=== PATIENT | female | born 2000 | race Caucasian/White ===

== ENCOUNTER 2023-11-08 09:53 | Outpatient (CLI) | payer OTHER ==
--- NOTE | 2023-11-09 08:02 | XRAY Report ---
PROCEDURE: Shoulder 2 View RT INDICATIONS: RIGHT SHOULDER PAIN TECHNIQUE: 3 views of the shoulder were acquired. COMPARISON: None. FINDINGS: Bones: No fractures or dislocations. No suspicious bony lesions. Visualized ribs appear intact. Soft tissues: No suspicious soft tissue calcifications. The visualized lungs are within normal limi ts. IMPRESSION: No acute bony abnormality. If clinical symptoms persist or there is clinical suspicion for internal d erangement, consider MRI. Reviewed by: Sarwat Manriquez MD on 11/09/2023 8:00 AM [facility] Approved by: Sarwat Manriquez MD on 11/09/2023 8:00 AM [facility] Station ID: [id number]
== END 2023-11-08 09:54 | disposition home or self-care (01) ==
LOC: DI.N 09:53
PROVIDERS: ATTEND Nurse Practitioner
DX: M25.511 Pain in right shoulder (principal)

== ENCOUNTER 2024-02-08 12:16 | Outpatient (CLI) | payer OTHER ==
--- NOTE | 2024-02-10 14:08 | MRI Report ---
PROCEDURE: Shoulder RT WO INDICATIONS: SHOULDER PAIN TECHNIQUE: Noncontrast oblique coronal T2 fast spin echo with fat saturation, oblique sagittal T1 spin echo and T2 fast spin echo with fat saturation, axial T1 spin echo and T2 fast spin echo with fat saturation t hrough the shoulder. COMPARISON: Right shoulder radiograph dated 11/08/2023. FINDINGS: Image quality: Excellent. Rotator cuff: Low-grade articular and bursal surface partial-thickness tear involving distal supraspi natus at its insertion on humeral head is seen extending to muscular tendinous junction. Distal infra spinatus and subscapularis tendinosis is seen. No full-thickness rotator cuff tendon rupture.. No ro tator cuff muscle atrophy on sagittal images. Bones and bursae: No bone marrow contusions or fractures. No acromioclavicular joint degeneration. The acromion demonstrates conventional anatomy, without an os acromiale. No pathologic subacromial/ subdeltoid bursal fluid is present. Capsule and soft tissues: There is fraying of superior anterior labrum with T2 hyperintense signal at 12 to 1:00 position suggestive of subtle superior anterior labral tear.. The long head of the bicep s tendon demonstrates normal location and morphology. The rotator interval appears normal, without f ibrosis. The coracohumeral ligament is normal in thickness. IMPRESSION: 1. Low-grade articular and bursal surface partial-thickness tear involving distal supraspinatus exten ding to muscular tendinous junction. Distal infraspinatus and subscapularis tendinosis. No full-thick ness rotator cuff tendon rupture. 2. No marrow edema. No fracture or dislocation. No significant joint effusion and subacromial subdelt oid bursal fluid. 3. Suggestion of subtle superior anterior labral tear at 12 to 1:00 position. Reviewed by: Darryn Mcadams MD on 02/10/2024 2:07 PM PDT Approved by: Darryn Mcadams MD on 02/10/2024 2:07 PM PDT Station ID: [id number]
== END 2024-02-08 12:17 | disposition home or self-care (01) ==
LOC: DI 12:16
PROVIDERS: ATTEND Student in an Organized Health Care Education/Training Program
DX: M75.111 Incomplete rotator cuff tear or rupture of right shoulder, not specified as traumatic (principal)

== ENCOUNTER 2024-05-16 12:36 | Outpatient (CLI) | payer OTHER ==
--- NOTE | 2024-05-16 17:10 | Ultrasound Report ---
PROCEDURE: Pelvic w/Transvaginal INDICATIONS: DYSMENORRHEA TECHNIQUE: Real-time scanning was performed of the pelvic organs, with image documentation. Additional endovagi nal scanning was necessary due to incomplete visualization of the adnexal and endometrial structures by transabdominal scanning. COMPARISON: None. FINDINGS: Uterus: Uterus is retroverted and normal in size at 6.1 x 3.9 x 5.3 cm. The myometrium is homogeneo us. The endometrium measures 10 mm in combined thickness. Ovaries: The right ovary measures 3.2 x 2.1 x 2.9 cm, with a calculated ovarian volume of 10.4 cc. The left ovary measures 2.4 x 1.6 x 1.3 cm, with a calculated ovarian volume of 2.5 cc. The ovaries have a normal sonographic appearance. Less than 12 follicles can be seen in each ovary. No adnexal masses are seen. No cystic lesions measuring greater than 3 cm. There is a 1.7 x 2.1 x 1.4 cm dominan t right ovarian follicle. Other: No pathologic free abdominal or pelvic fluid. IMPRESSION: 1. Unremarkable pelvic ultrasound in a premenopausal female. Reviewed by: Sol Jones MD on 05/16/2024 5:09 PM PDT Approved by: Sol Jones MD on 05/16/2024 5:09 PM PDT Station ID: [id number]
== END 2024-05-16 12:37 | disposition home or self-care (01) ==
LOC: DI 12:36
PROVIDERS: ATTEND Student in an Organized Health Care Education/Training Program
DX: N94.6 Dysmenorrhea, unspecified (principal)